=== PATIENT | female | born 1995 | race Caucasian/White ===

== ENCOUNTER 2018-05-18 21:21 | Emergency (ER) | payer OTHER ==
--- NOTE | 2018-05-18 21:38 | PDOC ---
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
[2018-05-18 21:39] VITALS: BP 124/65; PULSE 85; TEMP 98.9; BMI 27.1
[2018-05-18 22:11] LABS: HCG,QUALITATIVE URINE Negative
[2018-05-18 22:19] LABS: URINE APPEARANCE SLCLOUDY; URINE BILIRUBIN NEGATIVE (<2.0 mg/dL); URINE COLOR YELLOW; URINE GLUCOSE (UA) NEGATIVE (NEGATIVE); URINE KETONE NEGATIVE (NEGATIVE); URINE LEUK ESTERASE NEGATIVE (NEGATIVE); URINE NITRITE NEGATIVE (NEGATIVE); URINE PROTEIN NEGATIVE (NEGATIVE)
--- NOTE | 2018-05-18 23:57 | PDOC ---
History of Present Illness - General Chief Complaint: Urinary Problem Stated Complaint: ABD PAIN Time Seen by Provider: 05/18/18 21:35 History Source: Patient Exam Limitations: No Limitations - History of Present Illness Initial Comments: 05/19/18 02:12 Best Contact: PCP:N/A Pmhx:Asthma/neg h/o intubation or recent admissions Pshx:0 Allergies: NKDA FH:0 Social Hx: Cigarettes/ 0 Alcohol/ 0 Drugs/0 LMP:04/19/2018 22-year-old female presents to the ER complaining of pelvic pain 1 month without fever, chills, nausea/vomiting, neck pain/stiffness, back pains, flank pains, abdominal pains, chest pain, shortness of breath, urinary symptoms: Frequency, urgency, hesitancy, hematuria. Patient states she is seen her foam fabricator and her exam has been completely negative. The pain is described as 4/10 dull nonradiating intermittent mid pelvic pain. The pain is exacerbated there are no alleviating or exacerbating factors. Past History - Past Medical History Allergies/Adverse Reactions: Allergies Allergy/AdvReac Type Severity Reaction Status Date / Time No Known Allergies Allergy Verified 05/19/18 00:41 Home Medications: Ambulatory Orders NK [No Known Home Medication] 05/19/18 - Suicide/Smoking/Psychosocial Hx Smoking History: Unknown if ever smoked Hx Alcohol Use: No Drug/Substance Use Hx: No Review of Systems - Review of Systems Able to Perform ROS?: Yes Comments:: 05/19/18 02:15 CONSTITUTIONAL: Absent: fever, chills, diaphoresis, generalized weakness, malaise, loss of appetite HEENT: Absent: rhinorrhea, nasal congestion, throat pain, throat swelling, difficulty swallowing, mouth swelling, ear pain, eye pain, visual Changes CARDIOVASCULAR: Absent: chest pain, loss of consciousness, palpitations, irregular heart rate, peripheral edema RESPIRATORY: Absent: cough, shortness of breath, dyspnea with exertion, orthopnea, wheezing, stridor, hemoptysis GASTROINTESTINAL: Absent: abdominal pain, abdominal distension, nausea, vomiting, diarrhea, constipation, melena, hematochezia GENITOURINARY: +pelvic pain Absent: dysuria, frequency, urgency, hesitancy, hematuria, flank pain MUSCULOSKELETAL: Absent: myalgia, arthralgia, joint swelling SKIN: Absent: rash, itching, pallor Is the patient limited Estonian proficient: No *Physical Exam - Vital Signs Last Vital Signs Temp Pulse Resp BP Pulse Ox 98.9 F 85 20 124/65 99 05/18/18 21:35 05/18/18 21:35 05/18/18 21:35 05/18/18 21:35 05/18/18 21:35 - Physical Exam Comments: 05/19/18 02:15 GENERAL: Well developed, well nourished. Awake and alert. No acute distress. HEENT: Normocephalic, atraumatic. PERRLA, EOMI. No conjunctival pallor. Sclera are non- icteric. Moist mucous membranes. Oropharynx is clear. NECK: Supple. Full ROM. No JVD. Carotid pulses 2+ and symmetric, without bruits. No thyromegaly. No lymphadenopathy. CARDIOVASCULAR: Regular rate and rhythm. No murmurs, rubs, or gallops. Distal pulses are 2+ and symmetric. PULMONARY: No evidence of respiratory distress. Lungs clear to auscultation bilaterally. No wheezing, rales or rhonchi. ABDOMINAL: +pelvic pain Soft. Non-tender. Non-distended. No rebound or guarding. No organomegaly. Normoactive bowel sounds. MUSCULOSKELETAL Normal range of motion at all joints. No bony deformities or tenderness. No CVA tenderness. EXTREMITIES: No cyanosis. No clubbing. No edema. No calf tenderness. SKIN: Warm and dry. Normal capillary refill. No rashes. No jaundice. Pelvic: External genitalia normal without lesions. Vaginal vault is clear without blood or discharge. Cervix is long and closed. No cervical motion tenderness. Uterus is nontender and normal in size. Adnexa are nontender and without masses. Moderate Sedation - Procedure Monitoring Vital Signs: Procedure Monitoring Vital Signs Temperature 98.9 F 05/18/18 21:35 Pulse Rate 85 05/18/18 21:35 Respiratory Rate 20 05/18/18 21:35 Blood Pressure 124/65 05/18/18 21:35 O2 Sat by Pulse Oximetry (%) 99 05/18/18 21:35 ED Treatment Course - ADDITIONAL ORDERS Additional order review: Laboratory Results 05/18/18 21:47 Urine Color Yellow Urine Appearance Slcloudy Urine pH 5.0 Ur Specific [place] 1.027 Urine Protein Negative Urine Glucose (UA) Negative Urine Ketones Negative Urine Blood Negative Urine Nitrite Negative Urine Bilirubin Negative Urine Urobilinogen 2.0 H Ur Leukocyte Esterase Negative Urine HCG, Qual Negative - RADIOLOGY Radiograph Interpretation: 05/19/18 01:25 Transvaginal ultrasound: Uterus measures 5.5 cm in length. Right ovary measures 3.1 x 1.7 x 1.7 cm and contains a dominant follicle. Left ovary measures 2.7 x 1.85 1.9 cm. No ovarian torsion *DC/Admit/Observation/Transfer Diagnosis at time of Disposition: Pelvic pain - Discharge Dispostion Disposition: HOME Condition at time of disposition: Stable Decision to Admit order: No - Referrals Referrals: Rafy Das MD [Non Staff, Medical] - - Patient Instructions Printed Discharge Instructions: DI for Pelvic Pain Additional Instructions: Be sure to follow with your foam fabricator this week. Pelvic rest Return back to the ER for severe/persistent or worsening symptoms - Post Discharge Activity
== END 2018-05-19 01:39 | disposition home or self-care (01) ==
LOC: JER 21:21 → JERFT 21:21 → JER 05-19 01:39
DX: R10.2 Pelvic and perineal pain (principal)
CPT/HCPCS: 76830-TC; 81003; 84703; 87077; 87086; 99283-25

== ENCOUNTER 2018-11-11 04:48 | Emergency (ER) | payer OTHER | END 2018-11-11 11:44 | disposition home or self-care (01) | LOC: JER 04:48 ==

== ENCOUNTER 2019-06-23 20:22 | Emergency (ER) | payer OTHER ==
[2019-06-23 20:29] VITALS: BP 103/63; PULSE 77; TEMP 97.8; BMI 25.4
[2019-06-23] MEDS ORDERED: IBUPROFEN 400 MG TABLET (FP) PO ONE ×2 (20:42→20:51)
--- NOTE | 2019-06-23 20:42 | PDOC ---
History of Present Illness - General Chief Complaint: Sore Throat Stated Complaint: SORE THROAT Time Seen by Provider: 06/23/19 20:30 History Source: Patient - History of Present Illness Timing/Duration: reports: other Associated Symptoms: reports: cough Past History - Past Medical History Allergies/Adverse Reactions: Allergies Allergy/AdvReac Type Severity Reaction Status Date / Time No Known Allergies Allergy Verified 06/23/19 20:29 Home Medications: Ambulatory Orders Ibuprofen 600 mg PO Q6H #30 tablet 11/11/18 Ibuprofen [Motrin -] 600 mg PO TID #21 tablet 11/11/18 Asthma: Yes COPD: No - Reproductive History Therapeutic (s) & number: No - Immunization History Immunization Up to Date: Yes - Psycho Social/Smoking Cessation Hx Smoking History: Never smoked Hx Alcohol Use: No Drug/Substance Use Hx: No Review of Systems - Review of Systems Constitutional: No: Chills, Fever HEENTM: Yes: Throat Pain. No: Ear Pain Respiratory: Yes: Cough *Physical Exam - Vital Signs Last Vital Signs Temp Pulse Resp BP Pulse Ox 97.8 F 77 18 103/63 99 06/23/19 20:27 06/23/19 20:27 06/23/19 20:27 06/23/19 20:27 06/23/19 20:27 - Physical Exam General Appearance: Yes: Appropriately Dressed. No: Apparent Distress HEENT: positive: Normal ENT Inspection, Normal Voice, TMs Normal, Pharynx Normal, Muffled/Hoarse voice Neck: positive: Supple. negative: Lymphadenopathy (R), Lymphadenopathy (L) Integumentary: positive: Dry, Warm Neurologic: positive: Fully Oriented, Alert, Normal Mood/Affect Medical Decision Making - Medical Decision Making 06/23/19 20:43 23-year-old female no significant history here with sore throat x4 days with hoarseness and cough. Taking Cepacol and Tylenol with no relief. see exam Viral pharyngitis Exam only workable for hoarseness -Strep negative -dc with symptomatic treatment Discharge - Discharge Information Problems reviewed: Yes Clinical Impression/Diagnosis: Viral pharyngitis Condition: Good Disposition: HOME - Follow up/Referral - Patient Discharge Instructions Patient Printed Discharge Instructions: Viral Pharyngitis Additional Instructions: The cause of your symptoms are most likely viral. There was no sign of infection. Please take Motrin or Tylenol for pain until symptoms resolve - Post Discharge Activity Work/Back to School Note: Back to Work
== END 2019-06-23 21:42 | disposition home or self-care (01) ==
LOC: JERFT 20:22
DX: J06.9 Acute upper respiratory infection, unspecified (principal); B97.89 Other viral agents as the cause of diseases classified elsewhere
CPT/HCPCS: 87070; 87880; 99283-25

== ENCOUNTER 2019-12-16 21:26 | Emergency (ER) | payer OTHER ==
[2019-12-16 21:33] VITALS: BP 117/81; PULSE 70; TEMP 98; BMI 24.6
--- NOTE | 2019-12-16 22:16 | PDOC ---
History of Present Illness - General Chief Complaint: Pain Stated Complaint: PAIN - History of Present Illness Initial Comments: 23 yo female with PMH of ectopic (tx with methotrexate), asthma, COVID, GERD presents with right lower back pain. Pt says back pain began 1 month ago, radiates to the left side, and worse with movement. She endorses dysuria for 1 week and nausea in the morning for 1 month. She denies fevers, chills, cp, sob, vomiting, constipation, diarrhea. She does not follow up with a PCP. LMP was november 17. Past History - Medical History Allergies/Adverse Reactions: Allergies Allergy/AdvReac Type Severity Reaction Status Date / Time No Known Allergies Allergy Verified 12/16/19 21:33 Home Medications: Ambulatory Orders Diclofenac Sodium [Diclo Gel] 1 each TP QID PRN #1 kit 12/17/19 Asthma: Yes COPD: No - Reproductive History Is Patient Now?: No Therapeutic (s) & number: No - Immunization History Immunization Up to Date: Yes - Psycho-Social/Smoking History Smoking History: Never smoked Have you smoked in the past 12 months: No - Substance Abuse Hx (Audit-C & DAST Scrn) How often the patient has a drink containing alcohol: 2-4 times / month Score: In Men: 4 or > Positive; In Women: 3 or > Positive: 2 Screen Result (Pos requires Nsg. Audit-10AR): Negative Review of Systems - Review of Systems Able to Perform ROS?: Yes Constitutional: No: Chills, Fever, Weakness HEENTM: No: Recent change in vision, Double Vision Respiratory: No: Cough, Orthopnea, Shortness of Breath Cardiac (ROS): No: Chest Pain, Chest Tightness ABD/GI: Yes: Nausea. No: Diarrhea, Vomiting : Yes: Burning, Dysuria, Flank Pain (right side). No: Discharge, Frequency, Hematuria Musculoskeletal: Yes: Back Pain (right lower back). No: Joint Pain, Joint Swelling, Muscle Pain Integumentary: No: Dryness, Erythema, Lesions Neurological: No: Headache, Ataxia, Dizziness Psychiatric: No: Anxiety, Depression, Mood Swings Endocrine: No: Intolerance to Cold, Intolerance to Heat Hematologic/Lymphatic: No: Anemia, Easy Bruising *Physical Exam - Vital Signs Last Vital Signs Temp Pulse Resp BP Pulse Ox 98 F 70 18 117/81 99 08/31/20 21:29 12/16/19 21:29 12/16/19 21:29 12/16/19 21:29 12/16/19 21:29 - Physical Exam General Appearance: Yes: Appropriately Dressed. No: Apparent Distress HEENT: positive: EOMI, Normal Voice Neck: negative: Tender, Rigid Respiratory/Chest: positive: Lungs Clear, Normal Breath Sounds. negative: Respiratory Distress Cardiovascular: positive: Regular Rhythm, Regular Rate, S1, S2. negative: Edema, JVD, Murmur, Bradycardia, Tachycardia Female Pelvic Exam: positive: cervical os closed, other (cervix is closed. no bleeding. yellow-white discharge. right adnexal tenderness. no cervical motion tenderness. no left adnexal tenderness.) Gastrointestinal/Abdominal: positive: Flat, Soft, Other. negative: Tender, Protuberent, Distended, Guarding, Rebound, Hernia (positive mcburney's point, negative rosvig. ) Musculoskeletal: positive: CVA Tenderness (R), Other (pain with laying down, pain with bending back. negative straight leg test, negative obturator/psoas) Extremity: positive: Normal Capillary Refill, Normal Inspection, Normal Range of Motion. negative: Tender, Coldness, Cyanosis Integumentary: positive: Normal Color, Dry Neurologic: positive: Fully Oriented, Alert, Normal Mood/Affect Medical Decision Making - Medical Decision Making 23 yo female with PMH of ectopic (tx with methotrexate), asthma, COVID, GERD presents with right lower back pain, dysuria, nausea. Pt endorses burning on urination and flank tenderness Pelvic Exam showed white-yellow discharge with no cvt. GC cultures sent UA is negative. Pt signed out to night team. Discharge - Discharge Information Problems reviewed: Yes Clinical Impression/Diagnosis: Dysuria Back pain Qualifiers: Back pain location: low back pain Chronicity: acute Back pain laterality: right Sciatica presence: without sciatica Qualified Code(s): M54.5 - Low back pain Condition: Good Disposition: HOME - Admission No - Additional Discharge Information Prescriptions: Diclofenac Sodium [Diclo Gel] 1 each TP QID PRN #1 kit PRN Reason: Pain - Follow up/Referral Referrals: Rose Mary Sierra MD [Primary Care Provider] - CallBack Reminder: Urine Culture - Patient Discharge Instructions Patient Printed Discharge Instructions: DI for Low Back Pain, Diclofenac Topical (osteoarthritis pain) Additional Instructions: You were seen today for right lower back pain and dysuria. Your back pain is likely a muscle strain. It will continue to be uncomfortable for the next few days. Avoid any heavy lifting or strenuous activity. The cause of the dysuria is unclear but will likely resolve by itself. The initial urine test was normal. The second one will take approx. 2 days to result. The hospital will call you if it's positive. You can take over the counter Tylenol or Advil as needed for pain. Take as directed on the package insert. Do not exceed the recommended dosage. You can also try using over the counter Salonpas Patches and warm heat compress. I have sent a prescription for Diclofenac Gel to your pharmacy. Take as directed on the package insert. Do not exceed the recommended dosage. Follow up with your primary care doctor in the next week or as needed. You will need to call to make an appointment. The number is included in this packet. Go to the nearest emergency department if your condition worsens or you feel like you need additional emergency evaluation. Print Language: LUXEMBOURGER - Post Discharge Activity Work/Back to School Note: Back to Work
[2019-12-16] MEDS ORDERED: ACETAMINOPHEN 325 MG TABLET (FP) PO ONE (22:51)
[2019-12-16 23:31] LABS: PH,URINE 5.5 (5.0-8.0); URINE APPEARANCE CLEAR; URINE BILIRUBIN NEGATIVE (NEGATIVE); URINE COLOR YELLOW; URINE GLUCOSE (UA) NEGATIVE (NEGATIVE); URINE KETONE TRACE (NEGATIVE); URINE LEUK ESTERASE NEGATIVE (NEGATIVE); URINE NITRITE NEGATIVE (NEGATIVE); URINE PROTEIN NEGATIVE (NEGATIVE); URINE UROBILINOGEN 0.2 mg/dL (0.2-1.0)
--- NOTE | 2019-12-16 23:45 | PDOC ---
Documentation entered by Angela Gutierrez SCRIBE, acting as scribe for Deepika Kellogg MD. Deepika Kellogg MD: This documentation has been prepared by the scribe, Angela Hamm SCRIBE, under my direction and personally reviewed by me in its entirety. I confirm that the documentation accurately reflects all work, treatment, procedures, and medical decision making performed by me. Attending Attestation - Resident Resident Name: IsatuEddiefelix - ED Attending Attestation I have performed the following: I have examined & evaluated the patient, The case was reviewed & discussed with the resident, I agree w/resident's findings & plan, Exceptions are as noted - HPI HPI: 12/16/19 22:48 The patient is a 23 year old female with a significant PMH of ectopic (treated with methotrexate), asthma, COVID and GERD who presents to the ED for evaluation of lower left sided back pain that began 1 month ago. Patient notes the pain is worsened by movement. She is also endorsing 1 week of dysuria and 1 month of nausea in the morning. 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 The patient denies chest pain, shortness of breath, cough, headache and dizziness. Denies fever, chills, vomiting, diarrhea and constipation. Denies frequency, urgency and hematuria. Pt. does report FH of kidney stones (father) LMP November 13 No PCP Follow up - Physicial Exam PE: 12/16/19 23:41 General: well appearing Abdomen: soft, nt, nd, no rebound no guarding Back: no midline or paraspinal tenderness, no CVA tenderness Extremities: strength 5/5 x4, warm and well perfused, ambulatory with steady gait - Medical Decision Making 12/16/19 23:42 23 yo F with R sided lower back pain x1 month, unremarkable exam, possible msk pain (no signs concerning for cord compression) vs. kidney stones vs. ectopic (hcg pending). Doubt torsion given duration of symptoms and patient very comfortable appearing and without n/v. Also unlikely appy as no RLQ ttp and pain ongoing for 1 month but worse today. Plan: -urine -check hcg -reassess This clinical encounter is taking place during a federal and state health care emergency attributable to the novel [place] Virus pandemic. The [place] of the Department of Health and Human Services has declared, pursuant to the Public Health Service Act 319F-3 (42 U.S.C. 247d-6d), that a covered persons activities related to medical countermeasures against COVID-19 will be immune from liability under Federal and State law. 12/17/19 00:18 hcg negative, urine unremarkable. Suspect msk pain. Will give motrin and d/c with return precautions, recommend PMD f/u and motrin or tylenol at home as needed for pain. Discharge - Discharge Information Problems reviewed: Yes Clinical Impression/Diagnosis: Back pain, Dysuria - Follow up/Referral Referrals: Rose Mary Sierra MD [Primary Care Provider] - - Patient Discharge Instructions - Post Discharge Activity
[2019-12-16 23:46] LABS: HCG,QUALITATIVE URINE Negative
[2019-12-16] MEDS ORDERED: ACETAMINOPHEN 325 MG TABLET (FP) ONE (23:46)
--- NOTE | 2019-12-17 00:04 | PDOC ---
*Physical Exam - Vital Signs Last Vital Signs Temp Pulse Resp BP Pulse Ox 98 F 70 18 117/81 99 12/16/19 21:29 12/16/19 21:29 12/16/19 21:29 12/16/19 21:29 12/16/19 21:29 ED Treatment Course - ADDITIONAL ORDERS Additional order review: Laboratory Results 12/16/19 23:23 Urine Color Yellow Urine Appearance Clear Urine pH 5.5 Ur Specific [place] 1.017 Urine Protein Negative Urine Glucose (UA) Negative Urine Ketones Trace H Urine Blood Negative Urine Nitrite Negative Urine Bilirubin Negative Urine Urobilinogen 0.2 Ur Leukocyte Esterase Negative Urine HCG, Qual Negative - Medications Given in the ED: ED Medications Discontinued Medications Generic Name Dose Route Start Last Admin Trade Name Freq PRN Reason Stop Dose Admin Acetaminophen 650 mg 12/16/19 22:51 12/16/19 23:48 Tylenol - PO 12/16/19 22:52 650 mg ONCE ONE Administration Medical Decision Making - Medical Decision Making Received sign out from resident Dr. Lunsford. In short, pt is a 23 y/o female presenting with right lower back pain w/o sciatica and dysuria. UA unremarkable for nitrites, leukocyte esterase, or pyuria. Urine culture and GC/C amplification pending. Will not prescribe abx at this time. Culture call back placed in [employer]. Pt reassessed. Reports pain has improved with Tylenol. Lower back pain is reproducible on my exam. Suspect MSK strain. Lower suspicion for nephrolithiasis, acute cystitis, PID, or ovarian pathology. Discussed physical exam findings and laboratory data with pt. Answered all questions. Provided return precautions. pt expressed verbal understanding and agreement with plan to discharge home with outpatient follow up. Provided copies of todays results. Prescribed topical Diclofenac for pain relief. Fabian Burden M.D., PGY3 Emergency Medicine Resident Discharge - Discharge Information Problems reviewed: Yes Clinical Impression/Diagnosis: Dysuria Back pain Qualifiers: Back pain location: low back pain Chronicity: acute Back pain laterality: right Sciatica presence: without sciatica Qualified Code(s): M54.5 - Low back pain Condition: Good Disposition: HOME - Admission No - Additional Discharge Information Prescriptions: Diclofenac Sodium [Diclo Gel] 1 each TP QID PRN #1 kit PRN Reason: Pain - Follow up/Referral Referrals: Rose Mary Sierra MD [Primary Care Provider] - CallBack Reminder: Urine Culture - Patient Discharge Instructions Patient Printed Discharge Instructions: DI for Low Back Pain, Diclofenac Topical (osteoarthritis pain) Additional Instructions: You were seen today for right lower back pain and dysuria. Your back pain is likely a muscle strain. It will continue to be uncomfortable for the next few days. Avoid any heavy lifting or strenuous activity. The cause of the dysuria is unclear but will likely resolve by itself. The initial urine test was normal. The second one will take approx. 2 days to result. The hospital will call you if it's positive. You can take over the counter Tylenol or Advil as needed for pain. Take as directed on the package insert. Do not exceed the recommended dosage. You can also try using over the counter Salonpas Patches and warm heat compress. I have sent a prescription for Diclofenac Gel to your pharmacy. Take as directed on the package insert. Do not exceed the recommended dosage. Follow up with your primary care doctor in the next week or as needed. You will need to call to make an appointment. The number is included in this packet. Go to the nearest emergency department if your condition worsens or you feel like you need additional emergency evaluation. Print Language: GAMBIAN - Post Discharge Activity Work/Back to School Note: Back to Work
[2019-12-17] MEDS ORDERED: IBUPROFEN 400 MG TABLET (FP) PO ONE (00:19)
[2019-12-17] MEDS ORDERED: LIDOCAINE 5% TOPICAL PATCH TP ONE (00:23)
[2019-12-17] MEDS ORDERED: LIDOCAINE 5% TOPICAL PATCH ONE (00:24)
[2019-12-17] MEDS ORDERED: LIDOCAINE PATCH REMOVAL MC SCH (22:00)
== END 2019-12-17 01:25 | disposition home or self-care (01) ==
LOC: JER 21:26
DX: M54.5 Low back pain (principal); R30.0 Dysuria
CPT/HCPCS: 36415; 81003; 84703; 87086; 87491; 87591; 99283-25